=== PATIENT | female | born 1940 | race Caucasian/White ===

== ENCOUNTER → 2016-10-21 | Outpatient (CLI) | payer OTHER, MEDICARE ==
--- NOTE | 2016-10-21 17:12 | MR ---
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 Technique: T1-weighted images were acquired axially and sagittally from the foramen magnum to the ve rtex. Axial fast inversion recovery, fast T2-weighted, and diffusion-weighted axial images were obta ined without contrast. Patient could not receive intravenous contrast due to the patient's elevated c reatinine. Findings: The ventricles, cisterns, and sulci are widened consistent with atrophy. No hydrocephalus, midline shift, herniation, or epidural/subdural hematomas. No intracranial hemorrhage or masses. Dif fusion weighted sequence demonstrates a 5-mm lacunar infarct in the right cerebellar hemisphere, axia l image 7, without hemorrhage or mass effect, probably acute or subacute. Cerebellar tonsils are in n ormal position. Pituitary gland is normal in size. Normal signal flow-void in the superior sagittal s inus, basilar artery, and bilateral internal carotid arteries indicating patency. Paranasal sinuses a nd mastoid air cells are clear. Scattered hyperintense T2/FLAIR signal foci throughout bilateral cere bral white matter. Osseous lesion involving the odontoid measuring 2.2 x 1.3 cm, consistent with osse ous metastasis. Consider additional CT or MRI of the cervical spine. Impression: 1. 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 Consider CT or MRI cerv ical spine for further evaluation. 2. Small acute lacunar infarct in the right cerebellar hemispheres. 3. No acute hemorrhage, hydrocephalus, mass effect, or herniation. 4. Moderate diffuse atrophy. 5. Multiple nonspecific hyperintense T2/FLAIR signal abnormalities in the white matter of bilateral c erebral hemispheres. Differential diagnosis includes moderate microvascular ischemic gliosis, post-i nfectious/post-inflammatory sequela, atypical demyelinating disease, or migraine-related sequela. 6. No definite intracranial metastasis, although limited due to lack of intravenous contrast, which c ould not be given due to the patient's elevated creatinine. Preliminary report left on the cell phone for Dr. Dennis Garza suspension cord tier for Dr. Nik Villela at 165 5 hours today. A test result has been communicated to a licensed care provider and documented in [employer], 5:44:47 PM , 10/21/2016, [employer] Message ID [id number].
== END ==
LOC: FIMAGING 15:14
PROVIDERS: ATTEND Internal Medicine Hematology & Oncology
DX: I63.8 Other cerebral infarction (principal); C34.11 Malignant neoplasm of upper lobe, right bronchus or lung; C79.51 Secondary malignant neoplasm of bone